=== PATIENT | male | born 2005 | race Caucasian/White ===

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

== ENCOUNTER 2023-06-18 17:24 | Emergency (ER) | payer SELFPAY ==
[2023-06-18 17:29] VITALS: BP 137/84; PULSE 86; RESP 18; TEMP 98.4; BMI 26.9
[2023-06-18] MEDS ORDERED: ACETAMINOPHEN 325 MG TABLET (FP) ONE (18:21)
[2023-06-18] MEDS ORDERED: DIPHTH,PERTUSS(ACELL),TET 0.5 ML DISP.SYRIN IM ONE (18:22)
[2023-06-18] MEDS: DIPHTH,PERTUSS(ACELL),TET 0.5 ML DISP.SYRIN IM ONE (18:26)
[2023-06-18] MEDS: ACETAMINOPHEN 500 MG TABLET (FP) PO ONE (18:27)
== END 2023-06-18 18:54 | disposition home or self-care (01) ==
LOC: JERFT 17:24
PROC: 3E0234Z Introduction of Serum, Toxoid and Vaccine into Muscle, Percutaneous Approach (ICD-10-PCS; principal; 2023-06-18)
DX: S61.212A Laceration without foreign body of right middle finger without damage to nail, initial encounter (principal); W23.1XXA Caught, crushed, jammed, or pinched between stationary objects, initial encounter; Z23 Encounter for immunization
CPT/HCPCS: 90715; 99283-25